=== PATIENT | male | born 1985 | race African-American/Black ===

== ENCOUNTER 2017-06-03 20:39 | Inpatient (IN) | payer OTHER ==
[~2017-06-03] VITALS: Ht 177.8 cm; Wt 73.5 kg
[2017-06-03 21:25] LABS: HEMATOCRIT 46.1 % (38.0-50.0); MCH 30.3 PG (29.0-34.0); MCHC 34.1 G/DL (30.0-36.0); MCV 88.8 FL (86-99); MEAN PLAT.VOLUME 9.2 uM^3 (9.0-12.4); PLATELET COUNT 200 K/uL (156-360); RBC DIS.WIDTH-CV 11.5 % (11.8-14.6); RED BLOOD COUNT 5.19 M/uL (4.00-5.50)
[2017-06-03 21:34] LABS: CHLORIDE 106 mEq/L (99-109)
[2017-06-03 21:35] LABS: POTASSIUM 3.7 mEq/L (3.7-5.4); SODIUM 138 mEq/L (136-147)
[2017-06-03 21:37] LABS: GLUCOSE 90 mg/dL (70-99)
[2017-06-03 21:38] LABS: ANION GAP 5 MEQ/L (2-14)
[2017-06-03 21:39] LABS: TOTAL BILIRUBIN 0.9 mg/dL (0.0-1.0)
[2017-06-03 21:40] LABS: ALKALINE PHOSPHATASE 60 IU/L (3-129); SERUM ETHYL ALCOHOL < 10 mg/dL
[2017-06-03 21:41] LABS: GFR ESTIMATE (CALCULATED) > 59 mL/min/
[2017-06-03 21:42] LABS: UREA NITROGEN (BUN) 16 mg/dL (9-23)
[2017-06-03 23:49] LABS: ADD MIUA? YES; BILIRUBIN NEGATIVE; BLOOD NEGATIVE; COLOR YELLOW ((YELLOW)); GLUCOSE (STRIP) NEGATIVE; KETONES NEGATIVE; LEUKOCYTES NEGATIVE; NITRITE NEGATIVE; PROTEIN (STRIP) 100; SPECIFIC GRAVITY 1.026 (1.000-1.030)
[2017-06-04 00:32] LABS: AMPHETAMINE NEGATIVE (500 ng/mL); BARBITURATES NEGATIVE (200 ng/mL); BENZODIAZEPINES NEGATIVE (150 ng/mL); COCAINE NEGATIVE (150 ng/mL); INTERNAL CONTROLS VALID? YES; METHADONE NEGATIVE (200 ng/mL); METHAMPHETAMINE NEGATIVE (500 ng/mL); OPIATES (MORPHINE) NEGATIVE (100 ng/mL); OXYCODONE NEGATIVE (100 ng/mL); PHENCYCLIDINE NEGATIVE (25 ng/mL); PROPOXYPHENE NEGATIVE (300 ng/mL); THC CANNABINOIDS NEGATIVE (50 ng/mL); TRICYCLIC ANTIDEPRESSANTS NEGATIVE (300 ng/mL)
[2017-06-04 00:34] LABS: BACTERIA RARE /HPF; EPITHELIAL CELLS RARE /HPF; MUCUS TRACE /LPF; RED BLOOD CELLS 0-5 /HPF (0-5); UCUL ADDED? NO; WHITE BLOOD CELLS 0-5 /HPF (0-5)
[2017-06-04] MEDS ORDERED: B/P MEDICATION (01:49)
[2017-06-04 02:06] VITALS: BP 113/55
[2017-06-04 07:51] VITALS: BP 103/50
[2017-06-04 15:34] VITALS: BP 140/64
[2017-06-05 07:40] VITALS: BP 119/56
[2017-06-05 15:12] VITALS: BP 121/81
[2017-06-06 07:50] VITALS: BP 120/58
[2017-06-06 15:27] VITALS: BP 122/57
[2017-06-07 07:36] VITALS: BP 123/60
[2017-06-07 15:26] VITALS: BP 134/61
[2017-06-08 07:33] VITALS: BP 118/58
[2017-06-08 17:32] VITALS: BP 118/61
[2017-06-09 07:54] VITALS: BP 117/56
[2017-06-09 15:35] VITALS: BP 126/61
[2017-06-10 07:29] VITALS: BP 124/63
[2017-06-10] MEDS ORDERED: ARIPIPRAZOLE5 MG PO (09:19)
[2017-06-10] MEDS ORDERED: DIVALPROEX SOD500 MG PO (09:19)
== END 2017-06-10 11:19 | disposition home or self-care (01) | DRG 885 ==
LOC: EME 20:39 → 1WEST 06-04 00:30 → EDOF 06-04 00:30 → ENRESERV 06-04 00:36 → 1WEST 06-04 01:57
PROVIDERS: Emergency Medicine
DX: F33.2 Major depressive disorder, recurrent severe without psychotic features (principal); R45.851 Suicidal ideations; F17.200 Nicotine dependence, unspecified, uncomplicated; I10 Essential (primary) hypertension; F12.90 Cannabis use, unspecified, uncomplicated; F90.9 Attention-deficit hyperactivity disorder, unspecified type
CPT/HCPCS: 80053; 80164; 81003; 85027; 90837; 97150 GO; 99281; 99285; G0480; Q0177